=== PATIENT | female | born 1955 | race Caucasian/White ===

== ENCOUNTER 2025-06-04 05:33 | Day surgery (SDC) | payer MEDICARE, OTHER ==
[~2025-06-04] VITALS: Ht 144.8 cm; Wt 74.0 kg
[~2025-06-04 05:33] MED LIST: CYCLOPENTOLATE HCL 1% 2 ML OPHTHALMIC SOLUTION ONE; KETOROLAC TROMETHAMINE 0.5% 5 ML OPHTHALMIC SOLUTION ONE; MOXIFLOXACIN HCL 0.5% 3 ML OPHTHALMIC SOLUTION ONE; PHENYLEPHRINE HCL 2.5% 2 ML OPHTHALMIC SOLUTION ONE; RINGERS SOLUTION,LACTATED 500 ML IV ONE; TETRACAINE HCL/PF 0.5% 4 ML OPHTHALMIC SOLUTION ONE; TROPICAMIDE 1% 3 ML OPHTHALMIC SOLUTION ONE
[2025-06-04] MEDS ORDERED: HYALURONATE SOD 8.5MG/0.85ML 10 MG/ML SYRINGE IO ONE (05:34)
[2025-06-04] MEDS ORDERED: POVIDONE-IODINE 5% 30 ML OPHTHALMIC SOLUTION ONE (06:04)
[2025-06-04] MEDS: RINGERS SOLUTION,LACTATED 500 ML IV ONE (06:12)
[2025-06-04] MEDS: TETRACAINE HCL/PF 0.5% 4 ML OPHTHALMIC SOLUTION OS ONE (06:13)
[2025-06-04] MEDS: PROPARACAINE HCL 0.5% 15 ML OPHTHALMIC SOLUTION OS ONE (06:13)
[2025-06-04] MEDS: TROPICAMIDE 1% 3 ML OPHTHALMIC SOLUTION OS SCH (06:13)
[2025-06-04] MEDS: CYCLOPENTOLATE HCL 1% 2 ML OPHTHALMIC SOLUTION OS SCH (06:13)
[2025-06-04] MEDS: MOXIFLOXACIN HCL 0.5% 3 ML OPHTHALMIC SOLUTION OS SCH (06:13)
[2025-06-04] MEDS: KETOROLAC TROMETHAMINE 0.5% 5 ML OPHTHALMIC SOLUTION OS SCH (06:13)
[2025-06-04] MEDS: PHENYLEPHRINE HCL 2.5% 2 ML OPHTHALMIC SOLUTION OS SCH (06:14)
[2025-06-04] MEDS: TETRACAINE HCL/PF 0.5% 4 ML OPHTHALMIC SOLUTION OS SCH (06:17)
[2025-06-04] MEDS ORDERED: PrednisoLONE ACETATE 1% 5 ML OPHTHALMIC SUSPENSION ONE (06:21)
[2025-06-04] MEDS ORDERED: PANT40TA54 PO (06:30)
[2025-06-04] MEDS ORDERED: SOLI5TAB6 PO (06:30)
[2025-06-04] MEDS ORDERED: SEMA0.258 SQ (06:30)
[2025-06-04] MEDS ORDERED: METF-446 PO (06:30)
[2025-06-04] MEDS ORDERED: LEVO50TA11 PO (06:30)
[2025-06-04] MEDS ORDERED: LISI20TA24 PO (06:30)
[2025-06-04] MEDS ORDERED: FLUT16H NASAL (06:30)
[2025-06-04] MEDS ORDERED: EMPA25TA3 PO (06:30)
[2025-06-04] MEDS ORDERED: ROSU20TA98 PO (06:30)
[2025-06-04 06:56] LABS: GLUCOMETER DEV NAME(LOC) SDS.; GLUCOSE,POINT OF CARE 118 MG/DL (70-110)
[2025-06-04] MEDS: PROPARACAINE HCL 0.5% 15 ML OPHTHALMIC SOLUTION ONE (06:58)
[2025-06-04] MEDS: EPINEPHrine 1:1,000 [1 MG/ML] VIAL ONE (07:11)
[2025-06-04] MEDS: LIDOCAINE/PF 1% 2 ML VIAL ONE (07:11)
[2025-06-04] MEDS: BALANCED SALT 15 ML OPHTHALMIC IRRIG.SOLN ONE (07:11)
[2025-06-04] MEDS: NEOMYCIN/POLYMYXIN B/DEXAMETH 3.5 GM OPHTHALMIC OINTMENT ONE (07:22)
[2025-06-04] MEDS ORDERED: FentaNYL CITRATE PF 100 MCG/2 ML VIAL ONE (12:00)
[2025-06-04] MEDS ORDERED: MIDAZOLAM HCL 2 MG/2 ML VIAL ONE (12:00)
== END 2025-06-04 08:25 | disposition home or self-care (01) ==
LOC: SDS 05:33
PROVIDERS: ATTEND Ophthalmology
DX: E11.36 Type 2 diabetes mellitus with diabetic cataract (principal); H25.12 Age-related nuclear cataract, left eye; I10 Essential (primary) hypertension; E78.00 Pure hypercholesterolemia, unspecified; M19.90 Unspecified osteoarthritis, unspecified site; Z90.710 Acquired absence of both cervix and uterus; Z98.890 Other specified postprocedural states; Z79.899 Other long term (current) drug therapy
CPT/HCPCS: 66984; 93005; 82962; J0169; J3010; J3490; J2250; J7120; V2632